=== PATIENT | male | born 2000 | race African-American/Black ===

== ENCOUNTER 2021-10-01 18:57 | Emergency (ER) | payer SELFPAY ==
[~2021-10-01] VITALS: Ht 182.9 cm; Wt 64.0 kg
[2021-10-01 19:04] VITALS: BP 146/82
== END 2021-10-01 19:43 | disposition left against medical advice (07) ==
LOC: ER 18:57
DX: Z53.21 Procedure and treatment not carried out due to patient leaving prior to being seen by health care provider (principal)
CPT/HCPCS: 93005; 99283